=== PATIENT | male | born 1970 | race Caucasian/White ===

== ENCOUNTER 2019-02-05 09:28 | Inpatient (IN) | payer OTHER ==
--- NOTE | 2019-02-05 12:55 | HP ---
CIWA Score Nausea/Vomitin Muscle Tremors: 3 Anxiety: 4-Mod. Anxious/Guarded Agitation: 2 Paroxysmal Sweats: 1-Minimal Palms Moist Orientation: 0-Oriented Tacttile Disturbances: 0-None Auditory Disturbances: 0-None Visual Disturbances: 0-None Headache: 0-None Present CIWA-Ar Total Score: 12 - Admission Criteria OASAS Guidelines: Admission for Medically Managed Detox: Requires at least one of the followin. CIWA greater than 12 2. Seizures within the past 24 hours 3. Delirium tremens within the past 24 hours 4. Hallucinations within the past 24 hours 5. Acute intervention needed for co occurring medical disorder 6. Acute intervention needed for co occurring psychiatric disorder 7. Severe withdrawal that cannot be handled at a lower level of care (continued vomiting, continued diarrhea, abnormal vital signs) requiring intravenous medication and/or fluids 8. Admission ROS [facility] Chief Complaint: seeking help for alcohol Allergies/Adverse Reactions: Allergies Allergy/AdvReac Type Severity Reaction Status Date / Time No Known Allergies Allergy Verified 02/05/19 11:37 History of Present Illness: 48 y/o/m here for alcohol use. He has never been in detox or rehab before. He has been drinking pint and a half of vodka daily. He denies any history of seizures. He has a history of alcohol related blackouts but none recently. He starts to drink in the mornings typically and starts to get the shakes if he does not drink, last drink was 24 hours ago. He was seen at [facility] yesterday by a psychologist and was referred here for detox. He uses Marijuana a few times a week prior to going to bed. He takes a few hits at night to help him go to sleep. He has been prescribed Adderall for 5 years and normally uses it once a day in the mornings. He also takes Klonopin once a day for anxiety, he last took one this morning but is still feeling anxious now. PMHx of HTN, anxiety, ADHD. He had an episode of Myocarditis 5 years ago for which he had a cardiac catherization done. He denies any other surgeries. He smokes half a pack of cigarettes daily. He has a history of elevated liver enzymes and had a liver biopsy done with no conclusive diagnosis. - Ebola screening Have you traveled outside of the country in the last 21 days: No Have you had contact with anyone from an Ebola affected area: No - Review of Systems Constitutional: Loss of Appetite EENT: reports: No Symptoms Reported Respiratory: reports: Cough Cardiac: reports: No Symptoms Reported GI: reports: Nausea, Vomiting : reports: No Symptoms Reported Musculoskeletal: reports: No Symptoms Reported Integumentary: reports: No Symptoms Reported Neuro: reports: No Symptoms reported Endocrine: reports: No Symptoms Reported Psychiatric: reports: Agitated, Anxious Other Systems: Reviewed and Negative Patient History - Patient Medical History Hx Anemia: No Hx Asthma: No Hx Chronic Obstructive Pulmonary Disease (COPD): No Hx Cancer: No Hx Cardiac Disorders: Yes (myocarditis 5 years ago) Hx Congestive Heart Failure: No Hx Hypertension: Yes (on meds) Hx Hypercholesterolemia: No Hx Pacemaker: No HX Cerebrovascular Accident: No Hx Seizures: No Hx Dementia: No Hx Diabetes: No Hx Gastrointestinal Disorders: No Hx Liver Disease: Yes (elevated liver enzymes in the past) Hx Genitourinary Disorders: No Hx Sexually Transmitted Disorders: No Hx Renal Disease (ESRD): No Hx Thyroid Disease: No Hx Human Immunodeficiency Virus (HIV): No (negative) Hx Hepatitis C: No (negative) Hx Depression: No Hx Suicide Attempt: No Hx Bipolar Disorder: No Hx Schizophrenia: No Other Medical History: no suicidal or homicidal ideations - Patient Surgical History Past Surgical History: Yes Hx Neurologic Surgery: No Hx Cataract Extraction: No Hx Cardiac Surgery: Yes (cardiac cath 5 years ago for myocarditis) Hx Lung Surgery: No Hx Abdominal Surgery: No Hx Appendectomy: No Hx Cholecystectomy: No Hx Genitourinary Surgery: No Hx Orthopedic Surgery: No Anesthesia Reaction: No - PPD History Previous Implant?: Yes Documented Results: Negative w/o proof PPD to be Administered?: Yes - Smoking Cessation Smoking history: Current every day smoker Have you smoked in the past 12 months: Yes Aproximately how many cigarettes per day: 10 Hx Chewing Tobacco Use: No Initiated information on smoking cessation: Yes 'Breaking Loose' booklet given: 02/05/19 - Substances abused Alcohol Substance route: Oral Frequency: Daily Amount used: 2 pints vodka Age of first use: 26 Date of last use: 02/05/19 Family Disease History - Family Disease History Family History: Denies Admission Physical Exam [facility] - Vital Signs Vital Signs: Vital Signs - 24 hr 07/19/19 07/19/19 11:53 12:39 Temperature 97.7 F 97.7 F Pulse Rate 104 H 104 H Respiratory 20 20 Rate Blood Pressure 154/104 H 154/104 H - Physical General Appearance: Yes: No Apparent Distress HEENTM: Yes: EOMI, Normocephalic, MIGUELINA Respiratory: Yes: Lungs Clear, Normal Breath Sounds, No Accessory Muscle Use Neck: Yes: Supple Cardiology: Yes: Regular Rhythm, Regular Rate, S1, S2 Abdominal: Yes: Normal Bowel Sounds, Non Tender, Soft. No: Guarding, Rebound Extremities: Yes: Normal Capillary Refill, Tremors. No: Swelling Neurological: Yes: mechanical maintenance II-XII NML intact, Fully Oriented, Alert, Motor Strength 5/5 Integumentary: Yes: Dry - Diagnostic (1) Alcohol use disorder Current Visit: Yes Status: Acute (2) Cannabis use disorder, mild, abuse Current Visit: Yes Status: Acute (3) Hypertension Current Visit: Yes Status: Acute Cleared for Admission S - Detox or Rehab [facility] Level of Care: Medically Supervised 2Day Detox Regimen/Protocol: Librium Breathalyzer - Breathalyzer Breathalyzer: 0 Urine Drug Screen - Test Device Lot number: [id number] Expiration date: 11/17/20 - Control Is test valid?: Yes - Results Drug screen NEGATIVE: No Urine drug screen results: THC-Marijuana, MET-Methamphetamine, AMP-Amphetamines Inpatient Rehab Admission - Rehab Decision to Admit Inpatient rehab admission?: No
--- NOTE | 2019-02-05 13:30 | PN ---
Teaching Attending Note Name of Resident: Abisai Winter ATTENDING PHYSICIAN STATEMENT I saw and evaluated the patient. I reviewed the resident's note and discussed the case with the resident. I agree with the resident's findings and plan as documented. SUBJECTIVE: pt here for etoh detox ,reports 1.5 pints vodka daily intermittently since late , current relapse since May 2018 after cat's and relationship breakup 3 weeks ago , latest use yesterday morning , went to [facility] , referred to this facility. Denies seizures, + blackouts, + tremors ,denies dui/ dwi , claims he is not driving after drinking alcohol " [place] " . 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 This report was requested by: Rose Marie Manning | Reference #: [id number] Others' Prescriptions Patient Name: Jose Garcia Date: 1970 Address: [address] [place] [address] Sex: Male Rx Written Rx Dispensed Drug Quantity Days Supply Prescriber Name 12/31/2018 01/02/2019 dextroamp-amphet er 20 mg cap 30 30 BadikianAnand MD 12/31/2018 01/02/2019 clonazepam 1 mg tablet 60 30 BadikianAnand MD 11/23/2018 11/24/2018 dextroamp-amphetamin 10 mg tab 60 30 BadikianAnand MD 11/23/2018 11/24/2018 dextroamp-amphet er 20 mg cap 30 30 BadikianAnand MD 11/23/2018 11/24/2018 clonazepam 1 mg tablet 60 30 BadikianAnand MD 10/17/2018 10/28/2018 dextroamp-amphet er 20 mg cap 30 30 BadikianAnand MD 10/17/2018 10/28/2018 dextroamp-amphetamin 10 mg tab 60 30 BadikianAnand MD 08/11/2018 08/13/2018 dextroamp-amphet er 20 mg cap 30 30 BadikianAnand MD 06/30/2018 07/04/2018 dextroamp-amphetamin 10 mg tab 60 30 BadikianAnand MD 06/30/2018 07/04/2018 dextroamp-amphet er 20 mg cap 30 30 BadikianAnand MD 06/30/2018 07/04/2018 clonazepam 1 mg tablet 60 30 Badikian, Anand MAYES 05/20/2018 05/26/2018 dextroamp-amphetamin 10 mg tab 60 30 Badikian, Anand MAYES 05/20/2018 05/26/2018 dextroamp-amphet er 20 mg cap 30 30 Badikian, Anand MAYES 05/20/2018 05/26/2018 clonazepam 1 mg tablet 60 30 Badikian, Anand MAYES 04/18/2018 04/22/2018 dextroamp-amphet er 20 mg cap 30 30 Badikian, Anand MAYES 04/18/2018 04/22/2018 dextroamp-amphetamin 10 mg tab 60 30 Badikian, Anadn MAYES 04/18/2018 04/22/2018 clonazepam 1 mg tablet 60 30 Badikian, Anand MAYES 03/16/2018 03/17/2018 dextroamp-amphet er 20 mg cap 30 30 Badikian, Anand MAYES 03/16/2018 03/17/2018 dextroamp-amphetamin 10 mg tab 60 30 Badikian, Anand MAYES 03/16/2018 03/17/2018 clonazepam 1 mg tablet 60 30 Badikian, Anand MAYES 02/10/2018 02/11/2018 dextroamp-amphetamin 10 mg tab 60 30 Badikian, Anand MAYES 02/10/2018 02/11/2018 dextroamp-amphet er 20 mg cap 30 30 Badikian, Anand MAYES 02/10/2018 02/11/2018 clonazepam 1 mg tablet 60 30 Badikian, Anand MAYES OBJECTIVE: wnwd , etoh on breath , tremulous, anxious . ASSESSMENT AND PLAN: ETOH abuse / dependence - Librium taper .
[2019-02-05] MEDS ORDERED: MAG HYDROX/AL HYDROX/SIMETH 30 ML UNIT-DOSE CUP PO PRN (13:34)
[2019-02-05] MEDS ORDERED: IBUPROFEN 400 MG TABLET (FP) PO PRN (13:34)
[2019-02-05] MEDS ORDERED: NICOTINE POLACRILEX 2 MG GUM BUC PRN (13:34)
[2019-02-05] MEDS ORDERED: MENTHOL/PHENOL 1 EACH UD MM PRN (13:34)
[2019-02-05] MEDS ORDERED: MAGNESIUM HYDROX 2400MG/30ML ORAL SUSPENSION 30 ML CUP PO PRN (13:34)
[2019-02-05] MEDS ORDERED: ACETAMINOPHEN 325 MG TABLET (FP) PO PRN ×2 (13:34)
[2019-02-05] MEDS ORDERED: MAGNESIUM CITRATE 300 ML BOTTLE PO PRN (13:34)
[2019-02-05] MEDS ORDERED: BISMUTH SUBSALICYLATE 262 MG/15 ML BTL PO PRN (13:34)
[2019-02-05] MEDS ORDERED: METHOCARBAMOL 500 MG TABLET PO PRN (13:34)
[2019-02-05] MEDS ORDERED: chlordiazePOXIDE HCL 10 MG CAPSULE PO PRN (13:34)
[2019-02-05] MEDS: metoPROLOL SUCCINATE 25 MG TAB.SR.24H (FP) PO SCH (15:36)
[2019-02-05] MEDS: hydrOXYzine HCL 25 MG TABLET (FP) PO PRN (15:40)
[2019-02-05 17:39] LABS: HEMATOCRIT 44.3 % (35.4-49); HEMOGLOBIN 15.3 GM/dL (11.7-16.9); MCH 32.9 pg (25.7-33.7); MCHC 34.5 g/dl (32.0-35.9); MEAN CELL VOLUME 95.3 fl (80-96); MEAN PLT VOLUME 10.5 fl (7.5-11.1); PLATELET COUNT 202 K/MM3 (134-434); RBC 4.65 M/mm3 (4.00-5.60); RDW 13.9 % (11.9-15.9); WHITE BLOOD COUNT 5.8 K/mm3 (4.0-10.0)
[2019-02-05 17:49] LABS: ALBUMIN 4.3 g/dl (3.4-5.0); BILIRUBIN,TOTAL 2.8 mg/dL (0.2-1); BLOOD UREA NITROGEN 8.8 mg/dL (7-18); CALCIUM 10.3 mg/dL (8.5-10.1); CREATININE 0.8 mg/dL (0.55-1.3); POTASSIUM 3.6 mmol/L (3.5-5.1); TOT PROT 7.7 g/dl (6.4-8.2)
[2019-02-05] MEDS: THIAMINE HCL 100 MG TABLET (FP) PO SCH (22:04)
[2019-02-05] MEDS: MELATONIN 5 MG TABLETS PO PRN (22:05)
[2019-02-05] MEDS: chlordiazePOXIDE HCL 25 MG CAPSULE PO SCH (22:05)
[2019-02-05] MEDS ORDERED: cloNIDine HCL 0.1 MG TABLET PO ONE (22:58)
[2019-02-06] MEDS: chlordiazePOXIDE HCL 25 MG CAPSULE PO SCH ×2 (06:07→13:20)
[2019-02-06] MEDS: metoPROLOL SUCCINATE 25 MG TAB.SR.24H (FP) PO SCH (10:55)
[2019-02-06] MEDS: PRENATAL VITAMINS W/ FOLIC ACID TABLET (FP) PO SCH (10:55)
--- NOTE | 2019-02-06 14:00 | PN ---
[facility] CIWA - CIWA Score Nausea/Vomitin-No Nausea/No Vomiting Muscle Tremors: None Anxiety: 4-Mod. Anxious/Guarded Agitation: 2 Paroxysmal Sweats: No Perspiration Orientation: 0-Oriented Tacttile Disturbances: 2-Mild Itch/Numbness/Burn Auditory Disturbances: 2-Mild Harshness/Frighten Visual Disturbances: 0-None Headache: 0-None Present CIWA-Ar Total Score: 10 S Progress Note (SOAP) Subjective: Anxious, Poor Appetite, Interrupted Sleep. Objective: PATIENT A & O X 3, OBSERVED AMBULATING ON UNIT UNASSISTED. IN NO ACUTE DISTRESS. 02/06/19 14:02 Vital Signs Temperature 97.2 F L 02/06/19 09:27 Pulse Rate 65 02/06/19 09:27 Respiratory Rate 18 02/06/19 09:27 Blood Pressure 159/97 02/06/19 09:27 O2 Sat by Pulse Oximetry (%) Laboratory Tests 02/05/19 02/05/19 02/05/19 14:00 14:00 14:00 WBC 5.8 RBC 4.65 Hgb 15.3 Hct 44.3 MCV 95.3 MCH 32.9 MCHC 34.5 RDW 13.9 Plt Count 202 MPV 10.5 Sodium 136 Potassium 3.6 Chloride 98 Carbon Dioxide 31 Anion Gap 8 BUN 8.8 Creatinine 0.8 Est GFR (CKD-EPI)AfAm 123.29 Est GFR (CKD-EPI)NonAf 106.38 Random Glucose 184 H Calcium 10.3 H Total Bilirubin 2.8 H AST 289 H ALT 179 H Alkaline Phosphatase 134 H Total Protein 7.7 Albumin 4.3 RPR Titer Nonreactive LABS NOTED. Assessment: 02/06/19 14:03 WITHDRAWAL SYMPTOMS. ELEVATED LIVER ENZYMES. HYPERBILIRUBINEMIA. HYPERGLYCEMIA. 02/06/19 14:11 02/06/19 14:14 Plan: CONTINUE DETOX. INCREASE DAILY PO WATER INTAKE. DUE TO ELEVATED LIVER ENZYMES NOTED ON DETOX ADMISSION LABORATORY ASSESSMENT, CHANGE FROM LIBRIUM DETOX PROTOCOL TO ATIVAN DETOX PROTOCOL. HEPATIC FUNCTION PANEL ORDERED FOR TOMORROW AM TO SEE IOF ANY CHANGE FROM ADMISSION LIVER ENZYME / BILIRUBIN LEVELS. FASTING GLUCOSE LEVEL ORDERED FOR TOMORROW AM FOR ELEVATED ADMISSION RANDOM GLUCOSE LEVEL.
[2019-02-06] MEDS ORDERED: LORazepam 1 MG TABLET PO PRN (14:04)
[2019-02-06] MEDS: LORazepam 2 MG TABLET PO SCH ×2 (18:02→22:15)
[2019-02-06] MEDS: MELATONIN 5 MG TABLETS PO PRN (22:15)
[2019-02-06] MEDS: THIAMINE HCL 100 MG TABLET (FP) PO SCH (22:15)
[2019-02-07] MEDS ORDERED: chlordiazePOXIDE 5 MG CAPSULE PO SCH (05:00)
[2019-02-07] MEDS: LORazepam 1 MG TABLET PO SCH ×4 (05:46→22:29)
[2019-02-07] MEDS: PRENATAL VITAMINS W/ FOLIC ACID TABLET (FP) PO SCH (10:17)
[2019-02-07] MEDS: metoPROLOL SUCCINATE 25 MG TAB.SR.24H (FP) PO SCH (10:17)
[2019-02-07 10:45] LABS: ALBUMIN 3.6 g/dl (3.4-5.0); BILIRUBIN,DIRECT 0.9 mg/dL (0.0-0.2); TOT PROT 6.8 g/dl (6.4-8.2)
--- NOTE | 2019-02-07 12:53 | PN ---
[facility] CIWA - CIWA Score Nausea/Vomitin-No Nausea/No Vomiting Muscle Tremors: 2 Anxiety: 2 Agitation: 2 Paroxysmal Sweats: 1-Minimal Palms Moist Orientation: 0-Oriented Tacttile Disturbances: 0-None Auditory Disturbances: 0-None Visual Disturbances: 0-None Headache: 0-None Present CIWA-Ar Total Score: 7 S Progress Note (SOAP) Subjective: patient is doing well with ativan detox regimen less tremor and sweat Objective: 02/07/19 12:51 Vital Signs Temperature 97.5 F L 02/07/19 09:10 Pulse Rate 110 H 02/07/19 09:10 Respiratory Rate 18 02/07/19 09:10 Blood Pressure 137/99 02/07/19 09:10 O2 Sat by Pulse Oximetry (%) Laboratory Last Values WBC 5.8 K/mm3 (4.0-10.0) 02/05/19 14:00 RBC 4.65 M/mm3 (4.00-5.60) 02/05/19 14:00 Hgb 15.3 GM/dL (11.7-16.9) 02/05/19 14:00 Hct 44.3 % (35.4-49) 02/05/19 14:00 MCV 95.3 fl (80-96) 02/05/19 14:00 MCH 32.9 pg (25.7-33.7) 02/05/19 14:00 MCHC 34.5 g/dl (32.0-35.9) 02/05/19 14:00 RDW 13.9 % (11.9-15.9) 02/05/19 14:00 Plt Count 202 K/MM3 (134-434) 02/05/19 14:00 MPV 10.5 fl (7.5-11.1) 02/05/19 14:00 Sodium 136 mmol/L (136-145) 02/05/19 14:00 Potassium 3.6 mmol/L (3.5-5.1) 02/05/19 14:00 Chloride 98 mmol/L (98-107) 02/05/19 14:00 Carbon Dioxide 31 mmol/L (21-32) 02/05/19 14:00 Anion Gap 8 MMOL/L (8-16) 02/05/19 14:00 BUN 8.8 mg/dL (7-18) 02/05/19 14:00 Creatinine 0.8 mg/dL (0.55-1.3) 02/05/19 14:00 Est GFR (CKD-EPI)AfAm 123.29 02/05/19 14:00 Est GFR (CKD-EPI)NonAf 106.38 02/05/19 14:00 Random Glucose 184 mg/dL (74-106) H 02/05/19 14:00 Fasting Glucose 137 mg/dL (74-106) H 02/07/19 07:50 Calcium 10.3 mg/dL (8.5-10.1) H 02/05/19 14:00 Total Bilirubin 2.0 mg/dL (0.2-1) H 02/07/19 07:50 Direct Bilirubin 0.9 mg/dL (0.0-0.2) H 02/07/19 07:50 AST 290 U/L (15-37) H 02/07/19 07:50 ALT 206 U/L (13-61) H 02/07/19 07:50 Alkaline Phosphatase 130 U/L (45-117) H 02/07/19 07:50 Total Protein 6.8 g/dl (6.4-8.2) 02/07/19 07:50 Albumin 3.6 g/dl (3.4-5.0) 02/07/19 07:50 RPR Titer Nonreactive (NONREACTIVE) 02/05/19 14:00 lab noted ast elevation Assessment: 02/07/19 12:52 alcohol withdrawal sx ast elevation Plan: continue alcohol detox repeat ast 02/09/19
[2019-02-07] MEDS ORDERED: LORazepam 0.5 MG TABLET PO PRN (14:05)
[2019-02-07] MEDS: MELATONIN 5 MG TABLETS PO PRN (22:29)
[2019-02-07] MEDS: THIAMINE HCL 100 MG TABLET (FP) PO SCH (22:29)
[2019-02-08] MEDS ORDERED: chlordiazePOXIDE HCL 10 MG CAPSULE PO PRN
[2019-02-08] MEDS ORDERED: chlordiazePOXIDE HCL 10 MG CAPSULE PO SCH (05:00)
[2019-02-08] MEDS: LORazepam 0.5 MG TABLET PO SCH ×4 (06:19→22:03)
[2019-02-08] MEDS: metoPROLOL SUCCINATE 25 MG TAB.SR.24H (FP) PO SCH (10:44)
[2019-02-08] MEDS: PRENATAL VITAMINS W/ FOLIC ACID TABLET (FP) PO SCH (10:44)
--- NOTE | 2019-02-08 12:47 | PN ---
[facility] CIWA - CIWA Score Nausea/Vomitin-No Nausea/No Vomiting Muscle Tremors: 2 Anxiety: 1-Mildly Anxious Agitation: 1-Slight > Activity Paroxysmal Sweats: 1-Minimal Palms Moist Orientation: 0-Oriented Tacttile Disturbances: 0-None Auditory Disturbances: 0-None Visual Disturbances: 0-None Headache: 0-None Present CIWA-Ar Total Score: 5 BHS Progress Note (SOAP) Subjective: 48 years old male admitted on 02/05/19 for acute alcohol withdrawal sx management doing well with ativan detox regimen mild tremor otherwise feeling ok Objective: 02/08/19 12:50 Vital Signs Temperature 98.5 F 02/08/19 10:12 Pulse Rate 77 02/08/19 10:12 Respiratory Rate 18 02/08/19 10:12 Blood Pressure 128/84 02/08/19 10:12 O2 Sat by Pulse Oximetry (%) Laboratory Last Values WBC 5.8 K/mm3 (4.0-10.0) 02/05/19 14:00 RBC 4.65 M/mm3 (4.00-5.60) 02/05/19 14:00 Hgb 15.3 GM/dL (11.7-16.9) 02/05/19 14:00 Hct 44.3 % (35.4-49) 02/05/19 14:00 MCV 95.3 fl (80-96) 02/05/19 14:00 MCH 32.9 pg (25.7-33.7) 02/05/19 14:00 MCHC 34.5 g/dl (32.0-35.9) 02/05/19 14:00 RDW 13.9 % (11.9-15.9) 02/05/19 14:00 Plt Count 202 K/MM3 (134-434) 02/05/19 14:00 MPV 10.5 fl (7.5-11.1) 02/05/19 14:00 Sodium 136 mmol/L (136-145) 02/05/19 14:00 Potassium 3.6 mmol/L (3.5-5.1) 02/05/19 14:00 Chloride 98 mmol/L (98-107) 02/05/19 14:00 Carbon Dioxide 31 mmol/L (21-32) 02/05/19 14:00 Anion Gap 8 MMOL/L (8-16) 02/05/19 14:00 BUN 8.8 mg/dL (7-18) 02/05/19 14:00 Creatinine 0.8 mg/dL (0.55-1.3) 02/05/19 14:00 Est GFR (CKD-EPI)AfAm 123.29 02/05/19 14:00 Est GFR (CKD-EPI)NonAf 106.38 02/05/19 14:00 Random Glucose 184 mg/dL (74-106) H 02/05/19 14:00 Fasting Glucose 137 mg/dL (74-106) H 02/07/19 07:50 Calcium 10.3 mg/dL (8.5-10.1) H 02/05/19 14:00 Total Bilirubin 2.0 mg/dL (0.2-1) H 02/07/19 07:50 Direct Bilirubin 0.9 mg/dL (0.0-0.2) H 02/07/19 07:50 AST 290 U/L (15-37) H 02/07/19 07:50 ALT 206 U/L (13-61) H 02/07/19 07:50 Alkaline Phosphatase 130 U/L (45-117) H 02/07/19 07:50 Total Protein 6.8 g/dl (6.4-8.2) 02/07/19 07:50 Albumin 3.6 g/dl (3.4-5.0) 02/07/19 07:50 RPR Titer Nonreactive (NONREACTIVE) 02/05/19 14:00 TB (QFT) Incubation (.) 02/05/19 14:00 TB Test (QFT) Nil 0.03 IU/mL (.) 02/05/19 14:00 TB Test (QFT) Mitogen 5.72 IU/mL (.) 02/05/19 14:00 TB Test (QFT) Antigen 0.03 IU/mL (.) 02/05/19 14:00 TB Test (QFT) Negative (Negative) 02/05/19 14:00 TB Positive Criteria (.) 02/05/19 14:00 lab noted ast elevation Assessment: 02/08/19 12:50 alcohol withdrawal sx Plan: continue alcohol detox
[2019-02-08] MEDS: THIAMINE HCL 100 MG TABLET (FP) PO SCH (21:55)
[2019-02-08] MEDS: hydrOXYzine HCL 25 MG TABLET (FP) PO PRN (21:56)
[2019-02-08] MEDS: MELATONIN 5 MG TABLETS PO PRN (21:56)
[2019-02-09] MEDS ORDERED: chlordiazePOXIDE HCL 10 MG CAPSULE PO ONE (05:00)
[2019-02-09 09:36] VITALS: BP 141/91; PULSE 68; TEMP 98.4
--- NOTE | 2019-02-09 10:11 | PN ---
[facility] CIWA - CIWA Score Nausea/Vomitin-No Nausea/No Vomiting Muscle Tremors: 1-None Visible, but [place] Anxiety: 1-Mildly Anxious Agitation: 1-Slight > Activity Paroxysmal Sweats: No Perspiration Orientation: 0-Oriented Tacttile Disturbances: 0-None Auditory Disturbances: 0-None Visual Disturbances: 0-None Headache: 0-None Present CIWA-Ar Total Score: 3 S Progress Note (SOAP) Subjective: 48 years old male admitted on 02/05/19 for acute alcohol withdrawal sx management doing well with ativan detox regimen no complication noted at this time discuss aftercare with staff prefers [facility] for alcohol recovery Objective: 02/09/19 10:19 Vital Signs Temperature 98.4 F 02/09/19 09:35 Pulse Rate 68 02/09/19 09:35 Respiratory Rate 18 02/09/19 09:35 Blood Pressure 141/91 02/09/19 09:35 O2 Sat by Pulse Oximetry (%) Laboratory Last Values WBC 5.8 K/mm3 (4.0-10.0) 02/05/19 14:00 RBC 4.65 M/mm3 (4.00-5.60) 02/05/19 14:00 Hgb 15.3 GM/dL (11.7-16.9) 02/05/19 14:00 Hct 44.3 % (35.4-49) 02/05/19 14:00 MCV 95.3 fl (80-96) 02/05/19 14:00 MCH 32.9 pg (25.7-33.7) 02/05/19 14:00 MCHC 34.5 g/dl (32.0-35.9) 02/05/19 14:00 RDW 13.9 % (11.9-15.9) 02/05/19 14:00 Plt Count 202 K/MM3 (134-434) 02/05/19 14:00 MPV 10.5 fl (7.5-11.1) 02/05/19 14:00 Sodium 136 mmol/L (136-145) 02/05/19 14:00 Potassium 3.6 mmol/L (3.5-5.1) 02/05/19 14:00 Chloride 98 mmol/L (98-107) 02/05/19 14:00 Carbon Dioxide 31 mmol/L (21-32) 02/05/19 14:00 Anion Gap 8 MMOL/L (8-16) 02/05/19 14:00 BUN 8.8 mg/dL (7-18) 02/05/19 14:00 Creatinine 0.8 mg/dL (0.55-1.3) 02/05/19 14:00 Est GFR (CKD-EPI)AfAm 123.29 02/05/19 14:00 Est GFR (CKD-EPI)NonAf 106.38 02/05/19 14:00 Random Glucose 184 mg/dL (74-106) H 02/05/19 14:00 Fasting Glucose 137 mg/dL (74-106) H 02/07/19 07:50 Calcium 10.3 mg/dL (8.5-10.1) H 02/05/19 14:00 Total Bilirubin 2.0 mg/dL (0.2-1) H 02/07/19 07:50 Direct Bilirubin 0.9 mg/dL (0.0-0.2) H 02/07/19 07:50 AST 290 U/L (15-37) H 02/07/19 07:50 ALT 206 U/L (13-61) H 02/07/19 07:50 Alkaline Phosphatase 130 U/L (45-117) H 02/07/19 07:50 Total Protein 6.8 g/dl (6.4-8.2) 02/07/19 07:50 Albumin 3.6 g/dl (3.4-5.0) 02/07/19 07:50 RPR Titer Nonreactive (NONREACTIVE) 02/05/19 14:00 TB (QFT) Incubation (.) 02/05/19 14:00 TB Test (QFT) Nil 0.03 IU/mL (.) 02/05/19 14:00 TB Test (QFT) Mitogen 5.72 IU/mL (.) 02/05/19 14:00 TB Test (QFT) Antigen 0.03 IU/mL (.) 02/05/19 14:00 TB Test (QFT) Negative (Negative) 02/05/19 14:00 TB Positive Criteria (.) 02/05/19 14:00 repeat ast pending lab noted 02/09/19 10:20 Assessment: 02/09/19 10:20 alcohol withdrawal sx Plan: continue alcohol detox
[2019-02-09] MEDS: PRENATAL VITAMINS W/ FOLIC ACID TABLET (FP) PO SCH (10:52)
[2019-02-09] MEDS: metoPROLOL SUCCINATE 25 MG TAB.SR.24H (FP) PO SCH (10:52)
--- NOTE | 2019-02-09 11:33 | DS ---
[facility] Detox Discharge Summary Admission Date: 02/05/19 Discharge Date: 02/09/19 - History Present History: Alcohol Dependence Additional Comments: after lunch and nap feeling better prefers to go to [facility] for rehab today alert oriented x 3 steady gait speech clearly denies headaches chest pain denies shortness of breath denies dizziness strong recommend the patient to bring in lab report regarding ast elevation patient is doing well with ativan detox regimen no complication throughout the detox stay Pertinent Past History: patient reported that inpatient detox likes [facility] no freedom to go out "my sister wants me to leave this place" encourage the patient to aftercare facility encourage the patient to bring in lab result to aftercare facility as well as discuss alcohol related liver insults - Physical Exam Results Vital Signs: Vital Signs Temperature 98.4 F 02/09/19 09:35 Pulse Rate 68 02/09/19 09:35 Respiratory Rate 18 02/09/19 09:35 Blood Pressure 141/91 02/09/19 09:35 O2 Sat by Pulse Oximetry (%) Pertinent Admission Physical Exam Findings: alcohol withdrawal sx Laboratory Last Values WBC 5.8 K/mm3 (4.0-10.0) 02/05/19 14:00 RBC 4.65 M/mm3 (4.00-5.60) 02/05/19 14:00 Hgb 15.3 GM/dL (11.7-16.9) 02/05/19 14:00 Hct 44.3 % (35.4-49) 02/05/19 14:00 MCV 95.3 fl (80-96) 02/05/19 14:00 MCH 32.9 pg (25.7-33.7) 02/05/19 14:00 MCHC 34.5 g/dl (32.0-35.9) 02/05/19 14:00 RDW 13.9 % (11.9-15.9) 02/05/19 14:00 Plt Count 202 K/MM3 (134-434) 02/05/19 14:00 MPV 10.5 fl (7.5-11.1) 02/05/19 14:00 Sodium 136 mmol/L (136-145) 02/05/19 14:00 Potassium 3.6 mmol/L (3.5-5.1) 02/05/19 14:00 Chloride 98 mmol/L (98-107) 02/05/19 14:00 Carbon Dioxide 31 mmol/L (21-32) 02/05/19 14:00 Anion Gap 8 MMOL/L (8-16) 02/05/19 14:00 BUN 8.8 mg/dL (7-18) 02/05/19 14:00 Creatinine 0.8 mg/dL (0.55-1.3) 02/05/19 14:00 Est GFR (CKD-EPI)AfAm 123.29 02/05/19 14:00 Est GFR (CKD-EPI)NonAf 106.38 02/05/19 14:00 Random Glucose 184 mg/dL (74-106) H 02/05/19 14:00 Fasting Glucose 137 mg/dL (74-106) H 02/07/19 07:50 Calcium 10.3 mg/dL (8.5-10.1) H 02/05/19 14:00 Total Bilirubin 2.0 mg/dL (0.2-1) H 02/07/19 07:50 Direct Bilirubin 0.9 mg/dL (0.0-0.2) H 02/07/19 07:50 AST 399 U/L (15-37) H 02/09/19 09:20 ALT 206 U/L (13-61) H 02/07/19 07:50 Alkaline Phosphatase 130 U/L (45-117) H 02/07/19 07:50 Total Protein 6.8 g/dl (6.4-8.2) 02/07/19 07:50 Albumin 3.6 g/dl (3.4-5.0) 02/07/19 07:50 RPR Titer Nonreactive (NONREACTIVE) 02/05/19 14:00 TB (QFT) Incubation (.) 02/05/19 14:00 TB Test (QFT) Nil 0.03 IU/mL (.) 02/05/19 14:00 TB Test (QFT) Mitogen 5.72 IU/mL (.) 02/05/19 14:00 TB Test (QFT) Antigen 0.03 IU/mL (.) 02/05/19 14:00 TB Test (QFT) Negative (Negative) 02/05/19 14:00 TB Positive Criteria (.) 02/05/19 14:00 lab noted ast elevation - Treatment Hospital Course: Detox Protocol Followed, Detoxed Safely, Responded well, Discharged Condition Good, Rehab Referral Accepted Patient has Accepted a Rehab Referral to: [facility] - Medication Discharge Medications: Ambulatory Orders Adderall Xr 20 mg Capsule 02/05/19 Klonopin 1 mg 02/05/19 Toprol Xl 25 mg PO DAILY 02/05/19 Metoprolol Succinate [Toprol XL -] 25 mg PO DAILY #30 tab.sr.[id number] 02/09/19 - Diagnosis (1) Alcohol dependence with uncomplicated withdrawal Status: Acute (2) Elevated liver enzymes Status: Chronic (3) Hypertension Status: Chronic Qualifiers: Hypertension type: essential hypertension Qualified Code(s): I10 - Essential (primary) hypertension - AMA Did Patient Leave Against Medical Advice: No
[2019-02-10] MEDS ORDERED: LORazepam 0.5 MG TABLET PO ONE (05:00)
== END 2019-02-09 12:05 | disposition home or self-care (01) | DRG 775 ==
LOC: YASAS 09:28 → Y3N 14:22
PROVIDERS: ADMIT Surgery; ATTEND Surgery
PROC: HZ2ZZZZ Detoxification Services for Substance Abuse Treatment (ICD-10-PCS; principal; 2019-02-05)
DX: F10.230 Alcohol dependence with withdrawal, uncomplicated (principal); F12.10 Cannabis abuse, uncomplicated; F17.210 Nicotine dependence, cigarettes, uncomplicated; I10 Essential (primary) hypertension; R94.5 Abnormal results of liver function studies; R73.9 Hyperglycemia, unspecified
CPT/HCPCS: 36415; 80053; 80076; 82947; 84450; 85027; 86480; 86593; J0735